=== PATIENT | female | born 1960 | race Caucasian/White ===

== ENCOUNTER → 2023-09-07 | Outpatient (CLI) | payer OTHER ==
[2023-09-07 19:14] LABS: Basophils # (A) 0.03 X 10*3/uL (0.00-0.10); Basophils % (A) 0.4 %; Eosinophils # (A) 0.25 X 10*3/uL (0.04-0.35); Eosinophils % (A) 3.2 %; HCT 39.2 % (37.2-46.3); Lymphocytes # (A) 2.37 X 10*3/uL (0.90-5.00); Lymphocytes % (A) 30.7 %; MCH 30.3 pg (27.0-32.0); MCHC 33.2 g/dL (32.0-37.0); MCV 91.4 FL (80.0-97.0); Mean Platelet Volume 11.5 FL (9.5-12.2); Monocytes # (A) 0.63 X 10*3/uL (0.20-1.00); Monocytes % (A) 8.2 %; NRBC Per 100 WBC 0 X 10*3/uL (0.00-0.01); Neutrophils # (A) 4.42 X 10*3/uL (1.80-7.70); Neutrophils % (A) 57.1 %; Platelet Count 319 X 10*3/uL (140-440); RBC 4.29 X 10*6/uL (4.10-5.20); RDW 12.7 % (11.5-14.5); WBC 7.73 X 10*3/uL (4.50-10.00)
[2023-09-07 19:15] LABS: Blood Urea Nitrogen 14.6 mg/dL (9.0-27.0); Carbon Dioxide 22.2 mmol/L (21.6-31.8); Chloride 105 mmol/L (96-109); Glucose 127 mg/dL (70-110); Sodium 142 mmol/L (135-145)
== END | disposition home or self-care (01) ==
LOC: LABPAT 14:12
PROVIDERS: ATTEND Obstetrics & Gynecology Obstetrics
DX: Z01.818 Encounter for other preprocedural examination (principal); I10 Essential (primary) hypertension; N81.4 Uterovaginal prolapse, unspecified
CPT/HCPCS: 80051; 82565; 82947; 84520; 85025; 86850; 86900; 86901; 87086; 93005

== ENCOUNTER 2023-09-16 09:19 | Day surgery (SDC) | payer OTHER ==
[2023-09-13 11:23] VITALS: BMI 29.2
--- NOTE | 2023-09-16 08:38 | P.HPOB ---
History of Present Illness H&P Date: 09/16/23 Chief Complaint: Symptomatic uterine prolapse This is a 62-year-old female that presents with complaints of uterine prolapse. Patient states increasing pressure and discomfort during the day. Patient had an ultrasound done revealing a uterine size of 7 cm, normal ovaries consistent with menopause. Patient is desirous of vaginal hysterectomy as she declines conservative treatment with pessary. Patient states she is having significant pressure and it is interfering with her daily activities. She denies bowel or bladder concerns. 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 She is menopausal Review of Systems Constitutional: Denies chills, Denies fatigue, Denies fever Ears, nose, mouth and throat: Denies headache Cardiovascular: Denies leg edema Respiratory: Denies dyspnea Gastrointestinal: Denies constipation, Denies diarrhea, Denies nausea, Denies vomiting Genitourinary: Reports as per HPI, Reports prolapse symptoms Past Medical History Past Medical History: Hyperlipidemia, Hypertension, Thyroid Disorder Additional Past Medical History / Comment(s): PROLAPSED UTERUS History of Any Multi-Drug Resistant Organisms: None Reported Past Surgical History: Breast Surgery Additional Past Surgical History / Comment(s): BREAST REDUCTION Past Anesthesia/Blood Transfusion Reactions: Postoperative Nausea & Vomiting (PONV) Additional Past Anesthesia/Blood Transfusion Reaction / Comment(s): SLOW TO WAKE UP AFTER BREAST REDUCTION Smoking Status: Never smoker - Past Family History Father Family Medical History: Cancer Medications and Allergies Home Medications Medication Instructions Recorded Confirmed Type Enalapril/Hydrochlorothiazide 1 each PO DAILY 09/13/23 09/13/23 History [Vaseretic 5-12.5 mg Tab] Eye Complex 7 1 cap PO DAILY 09/13/23 History Levothyroxine Sodium [Synthroid] 25 mcg PO DAILY 09/13/23 09/13/23 History Multivit with Calcium,Iron,Min 1 each PO DAILY 09/13/23 09/13/23 History [Women's Multivitamin] Rosuvastatin [Crestor] 10 mg PO DAILY 09/13/23 09/13/23 History Allergies Allergy/AdvReac Type Severity Reaction Status Date / Time No Known Allergies Allergy Verified 09/13/23 11:17 Exam Osteopathic Statement: *. No significant issues noted on an osteopathic structural exam other than those noted in the History and Physical/Consult. Targeted physical exam is performed General is well-nourished well-developed non female in no acute distress, breathing is nonlabored, heart is regular rate and rhythm, abdomen is soft and nontender, on genitourinary exam external genitalia is known to be normal for age, the vaginal Koza is noted to be pale and consistent with menopause. The uterus is noted to be descending a p rolapse noted to be grade 3-4. No adnexal masses are appreciated. The uterus is mobile. Assessment and Plan (1) Uterine prolapse Status: Acute Code(s): N81.4 - UTEROVAGINAL PROLAPSE, UNSPECIFIED SNOMED Code(s): 79778062 Plan: 62-year-old female with grade 3 for uterine prolapse presents for vaginal hysterectomy. Patient is desirous of definitive treatment with hysterectomy given symptoms of pelvic pressure increasing and interfering with daily activities. Patient is counseled on surgery. Risks are reviewed including but not limited to infection, bleeding, damage to bladder, bowel, ureteric injury. Patient states understanding. Will plan vaginal hysterectomy.
[2023-09-16] MEDS ORDERED: fentaNYL (PF) 50 MCG/ML 2 ML AMP IVP PRN (09:39)
[2023-09-16] MEDS ORDERED: HYDROmorphone 0.5 MG/0.5 ML SYRINGE IVP PRN ×2 (09:39→10:39)
[2023-09-16] MEDS: IV FLUID CONTINUATION 1,000 ML IV ONE (10:05)
[2023-09-16] MEDS: LIDOCAINE 1% (10MG/ML) FOR IV START INTRADERMA PRN (10:05)
[2023-09-16] MEDS: LACTATED RINGERS 1,000 ML IV SCH (10:05)
[2023-09-16] MEDS: DEXAMETHASONE SOD PHOSPHATE 4 MG/ML 1 ML VIAL IV ONE (10:19)
[2023-09-16] MEDS: ONDANSETRON 4 MG/2 ML VIAL IVP ONE (10:19)
[2023-09-16] MEDS: MIDAZOLAM 2 MG/2 ML VIAL IV PRN (10:30)
[2023-09-16] MEDS: fentaNYL (PF) 50 MCG/ML 2 ML AMP IVP ONE (10:30)
[2023-09-16] MEDS ORDERED: KETOROLAC 15 MG/ML 1 ML VIAL IVP PRN (10:39)
[2023-09-16] MEDS ORDERED: ONDANSETRON 4 MG/2 ML VIAL IVP PRN (10:39)
[2023-09-16] MEDS ORDERED: NALOXONE 0.4 MG/ML 1 ML VIAL IV PRN (10:39)
--- NOTE | 2023-09-16 10:39 | P.ANPRN ---
Procedure Note - Anesthesia - Epidural/Spinal Spinal Time Out Performed: Yes Date of Procedure: 09/16/23 Procedure Start Time: 10:30 Procedure Stop Time: 10:36 Location of Patient: PreOp Indication: Acute Post-Operative Pain, Requested by Surgeon Sedation Type: Sedate with meaningful contact maintained Preparation: Sterile Prep Position: Sitting Needle Guage: 25 Blood Aspirated: No Pain Paresthesia on Injection Noted: No Events: Uneventful and Well Tolerated
[2023-09-16] MEDS: diphenhydrAMINE 50 MG/ML 1 ML VIAL IVP PRN (11:00)
[2023-09-16] MEDS ORDERED: fentaNYL (PF) 50 MCG/ML 2 ML AMP ONE (12:15)
[2023-09-16] MEDS ORDERED: NEOSTIGMINE 1 MG/ML 10 ML VIAL ONE (12:15)
[2023-09-16] MEDS ORDERED: ROCURONIUM 10 MG/ML (5 ML VIAL) IV ONE (12:15)
[2023-09-16] MEDS ORDERED: SUCCINYLCHOLINE CHLORIDE 200 MG/10 ML VIAL IV ONE (12:15)
[2023-09-16] MEDS ORDERED: LIDOCAINE 1% INJ 10MG/ML (20 ML MDV) ONE (12:15)
[2023-09-16] MEDS ORDERED: MIDAZOLAM 2 MG/2 ML VIAL ONE (12:15)
[2023-09-16] MEDS ORDERED: PROPOFOL 10 MG/ML 20 ML VIAL IV ONE (12:15)
[2023-09-16] MEDS ORDERED: GLYCOPYRROLATE 0.2 MG/ML 2 ML VIAL ONE (12:15)
[2023-09-16] MEDS: VASOPRESSIN 20 UNIT in SODIUM CHLORIDE 0.9% 60 ML IV ONE (12:32)
[2023-09-16] MEDS: LACTATED RINGERS 1,000 ML IV ONE (12:44)
[2023-09-16] MEDS: BACITRACIN ZINC 500 UNIT/GM OINT 28.4 GM TUBE TOPICAL ONE (12:56)
[2023-09-16] MEDS ORDERED: SIMETHICONE 80 MG CHEWABLE PO PRN (13:36)
[2023-09-16] MEDS: ACETAMINOPHEN IV (For NPO) 1,000 MG in EMPTY BAG 1 BAG IVPB ONE (14:43)
--- NOTE | 2023-09-16 16:55 | P.OP ---
Date of Procedure: 09/16/23 Preoperative Diagnosis: Symptomatic uterine prolapse Postoperative Diagnosis: Same Procedure(s) Performed: Vaginal hysterectomy Anesthesia: GETA Surgeon: Mayra Clark Maintenance Journeyman #1: Rory Christianson Estimated Blood Loss (ml): 15 IV fluids (ml): 500 Urine output (ml): 400 (Clear yellow) Pathology: other (Uterus cervix) Condition: stable Disposition: PACU Indications for Procedure: Symptomatic uterine prolapse Operative Findings: Normal-appearing uterus, postmenopausal state. Ovaries not visualized Description of Procedure: Patient was taken back to the operating suite where general anesthesia was obtained without difficulty by the anesthesia department. She was prepped and draped in the normal sterile fashion in the dorsolithotomy position a Arriola catheter was placed using sterile technique, clear yellow urine was noted. Catheter was removed. A weighted speculum was placed in the posterior vaginal vault. The cervix was grasped with a double-tooth tenaculum on the anterior and posterior edge. With downward traction vasopressin was injected in a circumferential fashion. A circumferential incision of the vaginal mucosa was made with a scalpel. This allowed dissection into the entrance into the posterior cul-de-sac. The long weighted speculum is placed into the peritoneal cavity. At this time the uterosacral ligaments were visualized clamped with a Lindsey and suture-ligated with 0 Vicryl. This was then repeated on the opposite side. The cardinal ligament was then clamped with a Lindsey clamp suture- ligated, hemostasis was appreciated. This was then repeated on the opposite side. The uterine ligaments were then visualized clamped with a Lindsey clamp and suture-ligated. At this time the anterior cul-de-sac was entered and the corneal region was clamped with a Lindsey clamp on both sides. The specimen was then removed. The ovarian tubal complex was then doubly ligated with 0 Vicryl suture. Hemostasis was noted bilaterally. The long build speculum was removed and replaced with a short weighted speculum. The peritoneum was identified and closed in a pursestring. The uterosacral ligaments were then tied together in the vaginal mucosa was closed in a [id number] fashion. Hemostasis was appreciated. All counts were noted be correct x 2. The vaginal vault was then packed with 1 inch iodoform packing with bacitracin. Arriola catheter was replaced clear yellow urine was noted to be draining within the Arriola catheter bag. Patient tolerated procedure well and was taken the recovery room awake in stable condition.
--- NOTE | 2023-09-16 16:57 | P.PN ---
Progress Note - Text Progress Note Date: 09/16/23 62-year-old female status post vaginal hysterectomy this morning. Patient is doing well. Arriola remains and is draining clear yellow urine. She is complaining of mild itching from the Duramorph spinal she received for pain control in preop. She denies any vaginal bleeding. She is tolerating clear liquids without nausea or vomiting. Vital signs stable In general this is a well-nourished well-developed female no acute distress is appreciated. Abdomen is noted to be soft nontender Arriola is noted to be draining clear yellow urine Assessment Postop day 0, vaginal hysterectomy Plan Continue routine postoperative plan, vaginal packing and Arriola catheter to be removed at 5 AM Anticipate discharge home tomorrow
[2023-09-16] MEDS: SENNOSIDES-DOCUSATE SODIUM 1 EACH TAB PO SCH (19:47)
[2023-09-16] MEDS: IBUPROFEN IV 800 MG in SODIUM CHLORIDE 0.9% 250 ML IV ONE (23:20)
[2023-09-17] MEDS: Acetaminophen-Codeine 300-30mg TAB PO PRN ×2 (05:29→10:07)
[2023-09-17] MEDS: LEVOTHYROXINE 25 MCG TAB PO SCH (05:31)
[2023-09-17 05:42] LABS: Basophils % (A) 0 %; Eosinophils # (A) 0.1 k/uL (0-0.7); Eosinophils % (A) 1 %; HCT 36.1 % (34.0-46.0); HGB 11.6 gm/dL (11.4-16.0); Lymphocytes % (A) 17 %; MCH 29.7 pg (25.0-35.0); MCHC 32.2 g/dL (31.0-37.0); MCV 92.1 fL (80.0-100.0); Mean Platelet Volume 7.7; Monocytes # (A) 0.7 k/uL (0-1.0); Monocytes % (A) 6 %; Neutrophils % (A) 75 %; Platelet Count 277 k/uL (150-450); RBC 3.92 m/uL (3.80-5.40); RDW 12.3 % (11.5-15.5)
[2023-09-17] MEDS: IBUPROFEN 600 MG TAB PO PRN (08:16)
--- NOTE | 2023-09-17 09:34 | P.PN ---
Progress Note - Text 09/17/23 631am 62-year-old female status post vaginal hysterectomy and. Patient has spinal Duramorph for postop pain control patient seen and evaluated today, she has a VAS of 2 with no complaint of nausea vomiting. Patient does have pruritus which should subside
--- NOTE | 2023-09-17 10:33 | P.DS ---
Providers Date of admission: 09/16/2023 Expected date of discharge: 09/17/23 Attending physician: Mayra Clark Primary care physician: Panchito De Paz - Discharge Diagnosis(es) (1) Uterine prolapse Current Visit: No Status: Acute (2) Status post vaginal hysterectomy Current Visit: Yes Status: Acute Hospital Course: This is a 62 yo female that presented to the hospital for schedule vaginal hysterectomy for symptomatic uterine prolapse. She declined conservative treatment with psseary. For full details please see the dictated history and physical. She was taken back to the OR for scheduled vagial hysterectomy. Procedure is completed without difficulty, for full details please see the dictated operative report. Post operatively she is noting some lower pelvic discomfort and cramping. she has had 3 spontaneous voids, 100+ each time. she has had some bright red spotting since packing was removed this am. She is frustrated with with being uncomfortable s/p VH. She is using Tylenol 3/Motrin for discomfort. She is tolerating a regular diet with positive flatus. Patient Condition at Discharge: Good Plan - Discharge Summary Discharge Rx Participant: Yes New Discharge Prescriptions: No Action Rosuvastatin [Crestor] 10 mg PO DAILY Multivit with Calcium,Iron,Min [Women's Multivitamin] 1 each PO DAILY Enalapril/Hydrochlorothiazide [Vaseretic 5-12.5 mg Tab] 1 each PO DAILY Levothyroxine Sodium [Synthroid] 25 mcg PO DAILY Eye Complex 7 1 cap PO DAILY Discharge Medication List Enalapril/Hydrochlorothiazide [Vaseretic 5-12.5 mg Tab] 1 each PO DAILY 09/13/23 [History] Eye Complex 7 1 cap PO DAILY 09/13/23 [History] Levothyroxine Sodium [Synthroid] 25 mcg PO DAILY 09/13/23 [History] Multivit with Calcium,Iron,Min [Women's Multivitamin] 1 each PO DAILY 09/13/23 [History] Rosuvastatin [Crestor] 10 mg PO DAILY 09/13/23 [History] Follow up Appointment(s)/Referral(s): Mayra Clark DO [Doctor of Osteopathic Medicine] - 2 Weeks Patient Instructions/Handouts: Vaginal Hysterectomy (DC), Vaginal Hysterectomy (GEN) Activity/Diet/Wound Care/Special Instructions: No intercourse, tampons or douching. No heavy lifting greater than a gallon of milk. No driving for two weeks. Call with any fever, shakes or chills, with any pain not alleviated by over the counter meds, or with any quesions or concerns. Senna S2 p.o. at bedtime for constipation symptoms, ibuprofen 600 mg or 3 tablets every 6 hours as needed for pain. Discharge Disposition: HOME SELF-CARE
--- NOTE | 2023-09-17 17:14 | P.PN ---
Progress Note - Text Progress Note Date: 09/17/23 62-year-old female status post vaginal hysterectomy. Patient had an episode of urinary retention with straight cath void of 700 cc. Patient has had multiple small voids anywhere from 300-1 50 but postvoid residual remains around 300. Shr admits to pushing and straining quite hard as she does want to go home. Patient is comfortable. She denies vaginal bleeding. She is tolerating a regular diet without nausea or vomiting. She is ambulating without difficulty Vital signs stable In general well-nourished well-developed female in no acute distress Abdomen is soft and nontender swelling is appreciated of the urethral meatus Assessment Postop day 1, vaginal hysterectomy Urinary retention Plan She is voiding spontaneously we will plan to monitor voids closely with postvoid residual. Once postvoid residuals are less than 100 will consider discharge home. She has been straining/pushing therefore swelling is appreciated. She is counseled on plan for observing overnight given elevated postvoid residual. Although frustrated she understands and is willing to stay the night to monitor urinary output
[2023-09-18] MEDS: ACETAMINOPHEN TAB 325 MG TAB PO PRN (00:06)
[2023-09-18 07:57] VITALS: BP 145/80; PULSE 90; RESP 15; TEMP 98.2
--- NOTE | 2023-09-18 10:15 | P.PN ---
Progress Note - Text Progress Note Date: 09/18/23 62-year-old status post vaginal hysterectomy, postop day 2. Patient did struggle with elevated postvoid residuals of 300+ yesterday despite spontaneous voids. Patient admitted to straining/pushing with and voiding. Catheter was placed overnight for bladder decompression. Patient has had 3 spontaneous voids this morning postvoid residuals 100-1 70. Patient has urge to void. Urine remains clear/ yellow. She denies pain with urination. She does note sensation of urination. Vital signs stable In general well-nourished well-developed female in no acute distress Breathing is nonlabored Abdomen is soft and nontender Assessment Postop day 2, vaginal hysterectomy Urinary retention Plan Plan discharge home this am Plan to follow-up in 1 week as she has passed a voiding trial this morning. Patient denies pain. Patient has had multiple caths. therefore will prophylactically start Macrobid 100 mg twice daily for 7 days
== END 2023-09-18 10:25 | disposition home or self-care (01) ==
LOC: OR 09:19 → 4FBP 13:15 → OR 09-18 10:25
PROVIDERS: ATTEND Obstetrics & Gynecology Obstetrics
DX: N84.0 Polyp of corpus uteri (principal); N81.4 Uterovaginal prolapse, unspecified; D25.1 Intramural leiomyoma of uterus; E07.9 Disorder of thyroid, unspecified; E78.5 Hyperlipidemia, unspecified; G89.18 Other acute postprocedural pain; I10 Essential (primary) hypertension; N72 Inflammatory disease of cervix uteri; Z79.890 Hormone replacement therapy; Z79.899 Other long term (current) drug therapy
CPT/HCPCS: 88305; 85025; 58260; J2250; J1200; J1100; J0690; J2405; J3010; J0131; J1741